=== PATIENT | female | born 1980 | race Caucasian/White ===

== ENCOUNTER 2016-06-15 07:30 | Emergency (ER) | payer OTHER ==
[2016-06-15 09:22] LABS: HEMOGLOBIN 13.8 gm/dl (12.3-15.3); RED BLOOD COUNT 4.62 M/UL (4.00-5.10); WHITE BLOOD COUNT 9.3 K/UL (4.5-11.0)
[2016-06-15 09:44] LABS: BUN/CREATININE RATIO 18 (0-10)
== END 2016-06-15 15:15 | disposition home or self-care (01) ==
LOC: ER1 07:30
PROVIDERS: Physician Assistant
DX: R55 Syncope and collapse (principal); S01.112A Laceration without foreign body of left eyelid and periocular area, initial encounter; F17.200 Nicotine dependence, unspecified, uncomplicated; Z88.5 Allergy status to narcotic agent; W18.39XA Other fall on same level, initial encounter
CPT/HCPCS: 36415; 70450; 71010; 80053; 81001; 82550; 82553; 83874; 84484; 84703; 85025; 85379; 93005; 99284; J7030

== ENCOUNTER 2016-08-02 06:29 | Emergency (ER) | payer OTHER ==
[2016-08-02 06:53] LABS: HEMOGLOBIN 13.2 gm/dl (12.3-15.3); RED BLOOD COUNT 4.35 M/UL (4.00-5.10); WHITE BLOOD COUNT 7.8 K/UL (4.5-11.0)
[2016-08-02 07:09] LABS: BUN/CREATININE RATIO 14 (0-10)
== END 2016-08-02 13:55 | disposition home or self-care (01) ==
LOC: ER1 06:29
PROVIDERS: Student in an Organized Health Care Education/Training Program
DX: R55 Syncope and collapse (principal); R07.9 Chest pain, unspecified; E86.0 Dehydration; R51 Headache; G43.909 Migraine, unspecified, not intractable, without status migrainosus; F17.210 Nicotine dependence, cigarettes, uncomplicated; Z88.5 Allergy status to narcotic agent; Z79.899 Other long term (current) drug therapy
CPT/HCPCS: 36415; 70450; 71020; 80053; 82550; 82553; 83874; 84484; 84703; 85025; 93005; 96361; 96374; 99285; J1885

== ENCOUNTER → 2016-08-03 | Outpatient (CLI) | payer OTHER | LOC: KOH-I 13:37 | DX: R51 Headache (principal); J34.1 Cyst and mucocele of nose and nasal sinus | CPT/HCPCS: 70551 ==

== ENCOUNTER 2021-06-26 16:54 | Emergency (ER) | payer BC, OTHER ==
[~2021-06-26 16:54] MED LIST: BENTYL 20MG TAB20 MG PO; KEFLEX CAP 500500 MG PO; LODINE CAP 300300 MG PO; PRENATAL TABLE1 EAC1 PO; ZOFRAN ODT 4 MG4 MG PO
[2021-06-26] MEDS ORDERED: CEPHALEXIN500 M1 PO (18:41)
== END 2021-06-26 19:10 | disposition home or self-care (01) ==
LOC: ER1 16:54
DX: S61.012A Laceration without foreign body of left thumb without damage to nail, initial encounter (principal); W26.0XXA Contact with knife, initial encounter
CPT/HCPCS: 12002; 73130; 99283